=== PATIENT | male | born 1935 | race Caucasian/White ===

== ENCOUNTER 2018-03-29 13:32 | Emergency (ER) | payer OTHER ==
[2018-03-29 14:05] VITALS: BP 96/73
--- NOTE | 2018-03-29 14:53 | UC ---
Abdominal Pain Male HPI - HPI Summary HPI Summary: Pt c/o of feeling that he is not emptying his bowels completely. He reports that ~ 1 week ago he had diarrhea, began antidiarrhea now, c/o that he is constipated and has small, loose BMs but does not feel he is emptying his bowels. Pt reports passing flatus and denies abdominal pain. Pt had colonoscopy 7 years ago - History of Current Complaint Hx Obtained From: Patient Onset/Duration: Gradual Onset, Lasting Days, Still Present Timing: Constant Severity Initially: Mild Severity Currently: Mild Pain Intensity: 0 Location: Diffuse Radiates: No Aggravating Factor(s): Nothing Alleviating Factor(s): Nothing Associated Signs And Symptoms: Positive: Constipation, Diarrhea <Zuleima Cannon NP - Last Filed: 03/29/18 15:06> <Carissa Álvarez - Last Filed: 03/29/18 15:34> - History of Current Complaint Chief Complaint: UCGI Stated Complaint: NO BOWEL MOVEMENT Time Seen by Provider: 03/29/18 14:09 - Allergies/Home Medications Allergies/Adverse Reactions: Allergies Allergy/AdvReac Type Severity Reaction Status Date / Time No Known Allergies Allergy Verified 03/29/18 13:58 Home Medications: Home Medications Atenolol 25 mg PO DAILY 03/29/18 [History Confirmed 03/29/18] Gout Med 03/29/18 [History] Naproxen Sodium [Naproxen 220 mg] 220 mg PO BID 03/29/18 [History Confirmed 01/15] Prostate Med 03/29/18 [History] Valsartan 40 mg PO DAILY 03/29/18 [History Confirmed 03/29/18] PMH/Surg Hx/FS Hx/Imm Hx Previously Healthy: Yes - Surgical History Surgical History: Yes Surgery Procedure, Year, and Place: cabgx2. appendix - Family History Known Family History: Positive: Cardiac Disease - Social History Occupation: Retired Lives: With Family Alcohol Use: Rare Substance Use Type: None Smoking Status (MU): Former Smoker Have You Smoked in the Last Year: No When Did the Patient Quit Smoking/Using Tobacco: many years ago <Zuleima Cannon NP - Last Filed: 03/29/18 15:06> Review of Systems Constitutional: Negative Skin: Negative Eyes: Negative ENT: Negative Respiratory: Negative Cardiovascular: Negative Gastrointestinal: Diarrhea, Other - constipation Genitourinary: Negative Motor: Negative Neurovascular: Negative Musculoskeletal: Negative Neurological: Negative Psychological: Negative Is Patient Immunocompromised?: No All Other Systems Reviewed And Are Negative: Yes <Zuleima Cannon NP Last Filed: 03/29/18 15:06> Physical Exam Triage Information Reviewed: Yes Appearance: Well-Appearing Vital Signs: Initial Vital Signs Temp 97.9 F 03/29/18 13:52 Pulse 62 03/29/18 13:52 Resp 15 03/29/18 13:52 BP 96/73 03/29/18 13:52 Pulse Ox 98 03/29/18 13:52 Vital Signs Reviewed: Yes Eye Exam: Normal ENT Exam: Normal ENT: Positive: Other - wearing hearing aids Neck exam: Normal Respiratory Exam: Normal Cardiovascular Exam: Normal Abdominal Exam: Normal Abdomen Description: Positive: Nontender, Soft Bowel Sounds: Positive: Present Musculoskeletal Exam: Normal Neurological Exam: Normal Psychological Exam: Normal Skin Exam: Normal <Zuleima Cannon NP Last Filed: 03/29/18 15:06> Vital Signs: Initial Vital Signs Temp 97.9 F 03/29/18 13:52 Pulse 62 03/29/18 13:52 Resp 15 03/29/18 13:52 BP 96/73 03/29/18 13:52 Pulse Ox 98 03/29/18 13:52 <Carissa Álvarez - Last Filed: 03/29/18 15:34> Diagnostics - Radiology No standard instances Radiology Interpretation Completed By: Radiologist - IMPRESSION: NONSPECIFIC BOWEL GAS PATTERN. NO APPRECIABLE SUBPHRENIC GAS. <Zuleima Cannon NP Last Filed: 03/29/18 15:06> Abd Pain Male Course/Dx - Differential Dx/Clinical Impression Differential Diagnosis/HQI/PQRI: Constipation Provider Diagnoses: constipation <Zuleima Cannon NP Last Filed: 03/29/18 15:06> Discharge - Sign-Out/Discharge Documenting (check all that apply): Discharge/Admit/Transfer - Billing Disposition and Condition Condition: STABLE Disposition: HOME <Zuleima Cannon NP Last Filed: 03/29/18 15:06> - Billing Disposition and Condition Condition: STABLE Disposition: HOME <Carissa Álvarez - Last Filed: 03/29/18 15:34> - Discharge Plan Condition: Stable Disposition: HOME Patient Education Materials: Constipation (ED) Referrals: Gerardo Elmore MD [Primary Care Provider] - If Needed Attestation Statement User Type: Provider - I was available for consult. This patient was seen by the DEBBIE. The patient was not presented to, seen by, or examined by me. -Ljj <Carissa Álvarez - Last Filed: 03/29/18 15:34>
--- NOTE | 2018-03-29 14:53 | RAD ---
HISTORY: Abdominal discomfort, loose stools COMPARISONS: None VIEWS: Frontal supine and upright views of the abdomen. FINDINGS: BOWEL: There is a nonspecific bowel gas pattern, with nondilated small bowel gas noted. There is a moderate amount of stool within the colon. CALCULI: There are no abnormal calculi. BONES AND SOFT TISSUES: The patient is status post median sternotomy. OTHER FINDINGS: The lung bases are clear. There is no subphrenic gas. IMPRESSION: NONSPECIFIC BOWEL GAS PATTERN. NO APPRECIABLE SUBPHRENIC GAS.
== END 2018-03-29 15:03 | disposition home or self-care (01) ==
LOC: UCCORT 13:32
DX: K59.00 Constipation, unspecified (principal)
CPT/HCPCS: 74019; 99211; G0463